=== PATIENT | female | born 1985 | race Caucasian/White ===

== ENCOUNTER 2018-11-12 18:58 | Inpatient (IN) | payer SELFPAY ==
[~2018-11-12] VITALS: Ht 167.6 cm; Wt 122.5 kg
--- NOTE | 2018-11-12 20:09 | PHYS DOC ---
Adult General Chief Complaint Chief Complaint: ANKLE PROBLEM HPI HPI Patient is a 33 year old female that presents to ER after being seen at [facility] on Monday. The patient slid down heel to the leg and hurt her leg. The patient was seen in the ER in [place] and states that she had a fracture reduced however after the physician reduced it she says that the nurse took the cast off and then put a new cast on. It was never re-x-rayed after this happened. He states that she's been feeling increased pain in the leg. She is unsure what type of fracture that she has. She states that she was giving script for 10 mg [place]'s in the ER and has been taking those at home. Her pain is 10 out of 10 in severity however though. (RODRIGUE EPSTEIN APRN) Review of Systems Review of Systems Constitutional: Denies fever or chills [] Eyes: Denies change in visual acuity, redness, or eye pain [] HENT: Denies nasal congestion or sore throat [] Respiratory: Denies cough or shortness of breath [] Cardiovascular: No additional information not addressed in HPI [] GI: Denies abdominal pain, nausea, vomiting, bloody stools or diarrhea [] : Denies dysuria or hematuria [] Musculoskeletal: Reports pain in Left leg. Integument: Denies rash or skin lesions [] Neurologic: Denies headache, focal weakness or sensory changes [] Endocrine: Denies polyuria or polydipsia [] Complete systems were reviewed and found to be within normal limits, except as documented in this note. (RODRIGUE EPSTEIN APRN) Current Medications Current Medications Current Medications Medications (Trade) Dose Ordered Sig/Marcial Start Time Stop Time Status Last Admin Dose Admin Morphine Sulfate (Morphine Sulfate) 8 mg 1X ONCE 11/12/18 20:15 11/12/18 20:31 DC 11/12/18 20:45 8 MG (RODRIGUE MCCURDY DO) Allergies Allergies Allergies Coded Allergies Type Severity Reaction Last Updated Verified No Known Drug Allergies 11/12/18 No (RODRIGUE MCCURDY DO) Physical Exam Physical Exam Constitutional: Well developed, well nourished, no acute distress, non-toxic appearance. [] HENT: Normocephalic, atraumatic, bilateral external ears normal, oropharynx moist, no oral exudates, nose normal. [] Eyes: PERRLA, EOMI, conjunctiva normal, no discharge. [] Neck: Normal range of motion, no tenderness, supple, no stridor. [] Cardiovascular:Heart rate regular rhythm, no murmur [] Lungs & Thorax: Bilateral breath sounds clear to auscultation [] Abdomen: Bowel sounds normal, soft, no tenderness, no masses, no pulsatile masses. [] Skin: Warm, dry, no erythema, no rash. [] Back: No tenderness, no CVA tenderness. [] Extremities: Has splint on left leg. Neurovascular intact, able to wiggle toes. Neurologic: Alert and oriented X 3, normal motor function, normal sensory function, no focal deficits noted. [] Psychologic: Affect normal, judgement normal, mood normal. [] (RODRIGUE EPSTEIN APRN) Current Patient Data Vital Signs Vital Signs Date Time Temp Pulse Resp B/P (MAP) Pulse Ox O2 Delivery O2 Flow Rate FiO2 11/12/18 21:21 86 133/77 (95) 98 Room Air 11/12/18 20:45 18 11/12/18 19:40 97.9 97.9 (RODRGIUE MCCURDY DO) Lab Values Laboratory Tests Test 11/12/18 21:55 White Blood Count 11.4 x10^3/uL (4.0-11.0) H Red Blood Count 4.46 x10^6/uL (3.50-5.40) Hemoglobin 12.1 g/dL (12.0-15.5) Hematocrit 36.0 % (36.0-47.0) Mean Corpuscular Volume 81 fL (79-100) Mean Corpuscular Hemoglobin 27 pg (25-35) Mean Corpuscular Hemoglobin Concent 34 g/dL (31-37) Red Cell Distribution Width 14.8 % (11.5-14.5) H Platelet Count 391 x10^3/uL (140-400) Neutrophils (%) (Auto) 60 % (31-73) Lymphocytes (%) (Auto) 33 % (24-48) Monocytes (%) (Auto) 6 % (0-9) Eosinophils (%) (Auto) 1 % (0-3) Basophils (%) (Auto) 1 % (0-3) Neutrophils # (Auto) 6.8 x10^3/uL (1.8-7.7) Lymphocytes # (Auto) 3.8 x10^3/uL (1.0-4.8) Monocytes # (Auto) 0.6 x10^3/uL (0.0-1.1) Eosinophils # (Auto) 0.1 x10^3/uL (0.0-0.7) Basophils # (Auto) 0.1 x10^3/uL (0.0-0.2) Sodium Level 141 mmol/L (136-145) Potassium Level 4.0 mmol/L (3.5-5.1) Chloride Level 104 mmol/L (98-107) Carbon Dioxide Level 25 mmol/L (21-32) Anion Gap 12 (6-14) Blood Urea Nitrogen 17 mg/dL (7-20) Creatinine 1.0 mg/dL (0.6-1.0) Estimated GFR (Cockcroft-Gault) 63.5 BUN/Creatinine Ratio 17 (6-20) Glucose Level 97 mg/dL (70-99) Calcium Level 9.3 mg/dL (8.5-10.1) Total Bilirubin 0.4 mg/dL (0.2-1.0) Aspartate Amino Transferase (AST) 52 U/L (15-37) H Alanine Aminotransferase (ALT) 57 U/L (14-59) Alkaline Phosphatase 107 U/L (46-116) Total Protein 7.8 g/dL (6.4-8.2) Albumin 3.5 g/dL (3.4-5.0) Albumin/Globulin Ratio 0.8 (1.0-1.7) L Laboratory Tests 11/12/18 21:55 Laboratory Tests 11/12/18 21:55 (RODRIGUE MCCURDY DO) Lab Values Laboratory Tests Test 11/12/18 21:55 White Blood Count 11.4 x10^3/uL (4.0-11.0) H Red Blood Count 4.46 x10^6/uL (3.50-5.40) Hemoglobin 12.1 g/dL (12.0-15.5) Hematocrit 36.0 % (36.0-47.0) Mean Corpuscular Volume 81 fL (79-100) Mean Corpuscular Hemoglobin 27 pg (25-35) Mean Corpuscular Hemoglobin Concent 34 g/dL (31-37) Red Cell Distribution Width 14.8 % (11.5-14.5) H Platelet Count 391 x10^3/uL (140-400) Neutrophils (%) (Auto) 60 % (31-73) Lymphocytes (%) (Auto) 33 % (24-48) Monocytes (%) (Auto) 6 % (0-9) Eosinophils (%) (Auto) 1 % (0-3) Basophils (%) (Auto) 1 % (0-3) Neutrophils # (Auto) 6.8 x10^3/uL (1.8-7.7) Lymphocytes # (Auto) 3.8 x10^3/uL (1.0-4.8) Monocytes # (Auto) 0.6 x10^3/uL (0.0-1.1) Eosinophils # (Auto) 0.1 x10^3/uL (0.0-0.7) Basophils # (Auto) 0.1 x10^3/uL (0.0-0.2) Sodium Level 141 mmol/L (136-145) Potassium Level 4.0 mmol/L (3.5-5.1) Chloride Level 104 mmol/L (98-107) Carbon Dioxide Level 25 mmol/L (21-32) Anion Gap 12 (6-14) Blood Urea Nitrogen 17 mg/dL (7-20) Creatinine 1.0 mg/dL (0.6-1.0) Estimated GFR (Cockcroft-Gault) 63.5 BUN/Creatinine Ratio 17 (6-20) Glucose Level 97 mg/dL (70-99) Calcium Level 9.3 mg/dL (8.5-10.1) Total Bilirubin 0.4 mg/dL (0.2-1.0) Aspartate Amino Transferase (AST) 52 U/L (15-37) H Alanine Aminotransferase (ALT) 57 U/L (14-59) Alkaline Phosphatase 107 U/L (46-116) Total Protein 7.8 g/dL (6.4-8.2) Albumin 3.5 g/dL (3.4-5.0) Albumin/Globulin Ratio 0.8 (1.0-1.7) L Laboratory Tests 11/12/18 21:55 Laboratory Tests 11/12/18 21:55 (RODRIGUE EPSTEIN APRN) EKG EKG EKG interpreted by Dr. Mccurdy Sinus with rate of 95, No STEMI.[] (RODRIGUE EPSTEIN APRN) Radiology/Procedures Radiology/Procedures [] (RODRIGUE EPSTEIN APRN) Radiology/Procedures Left ankle 3V and Left Tib/Fib 2V: (preliminary interpretation by ED physician): Trimalleolar fracture with mild-moderate displacement of ankle mortis. (RODRIGUE MCCURDY DO) Course & Med Decision Making Course & Med Decision Making Pertinent Labs and Imaging studies reviewed. (See chart for details) Will get x-ray of leg to see if still dislocated. Looked patient up on [facility] and am unable to find record of patient ([facility] Patient appears to have a Trimalleolar fracture. The talus seems out of place. Discussed with Dr. Chan who request admission and he will see in the morning. Will admit to Dr. Myers. Will resplint and try to reduce the Talus. Resplinted patient. Gave pain medication beforehand and placed a posterior long with stirrup and pulled on the heel while doing so to try to relocate the talus. (RDORIGUE EPSTEIN APRN) Dragon Disclaimer Dragon Disclaimer This electronic medical record was generated, in whole or in part, using a voice recognition dictation system. (RODRIGUE EPSTEIN APRN) Splinting Splinting : Location: Left ankle Hand-Made Type: orthoglass Splint: sugar-tong (with posterior OCL) Pre-Proc Neuro Vasc Exam: normal Post-Proc Neuro Vasc Exam: normal, unchanged from pre-exam (RODRIGUE MCCURDY DO) Departure Departure Impression: Primary Impression: Trimalleolar fracture Disposition: 09 ADMITTED INPATIENT Admitting Physician: CHENTE (RODRIGUE EPSTEIN APRN) Condition: STABLE Referrals: NO PCP (PCP) GABBY CHAN MD Attending Signature Attending Signature I have reviewed the PA/STATION COOK's note and plan of care. I was available for consultation as needed during the patient's visit in the emergency department. I agree with the clinical impression, plan, and disposition. (RODRIGUE MCCURDY DO) Problem Qualifiers Primary Impression: Trimalleolar fracture Encounter type: initial encounter Fracture type: closed Laterality: left Qualified Codes: S82.852A - Displaced trimalleolar fracture of left lower leg, initial encounter for closed fracture RODRIGUE EPSTEIN APRN Nov 12, 2018 20:09 RODRIGUE MCCURDY DO Nov 13, 2018 04:32
[2018-11-12] MEDS ORDERED: MORPHINE SULFATE 10 MG/ML VIAL. IM ONE (20:15)
[2018-11-12] MEDS ORDERED: MIDAZOLAM HCL/PF 5 MG/5 ML VIAL. IV ONE (22:00)
[2018-11-12] MEDS ORDERED: ONDANSETRON PF 4 MG/2 ML VIAL. IV PRN (22:00)
[2018-11-12] MEDS ORDERED: fentaNYL PF VIAL 100 MCG/2 ML VIAL IV ONE (22:00)
[2018-11-12 22:04] LABS: BASO # 0.1 x10^3/uL (0.0-0.2); BASO % 1 % (0-3); EOS # 0.1 x10^3/uL (0.0-0.7); EOS % 1 % (0-3); HEMOGLOBIN 12.1 g/dL (12.0-15.5); LYMPH # 3.8 x10^3/uL (1.0-4.8); LYMPH % 33 % (24-48); MEAN CORPUSCULAR HEMOGLOBIN 27 pg (25-35); MEAN CORPUSCULAR HGB CONC 34 g/dL (31-37); MEAN CORPUSCULAR VOLUME 81 fL (79-100); MONO # 0.6 x10^3/uL (0.0-1.1); MONO % 6 % (0-9); NEUT # 6.8 x10^3/uL (1.8-7.7); NEUT % 60 % (31-73); PLATELET COUNT 391 x10^3/uL (140-400); RED BLOOD COUNT 4.46 x10^6/uL (3.50-5.40); RED CELL DISTRIBUTION WIDTH 14.8 % (11.5-14.5); WHITE BLOOD COUNT 11.4 x10^3/uL (4.0-11.0)
[2018-11-12 22:13] LABS: CALCIUM 9.3 mg/dL (8.5-10.1); GFR 63.5
[2018-11-12 22:18] LABS: ALBUMIN 3.5 g/dL (3.4-5.0); ALBUMIN/GLOBULIN RATIO 0.8 (1.0-1.7); TOTAL BILIRUBIN 0.4 mg/dL (0.2-1.0); TOTAL PROTEIN 7.8 g/dL (6.4-8.2)
--- NOTE | 2018-11-12 23:10 | NUR ---
The patient, TIFF ROBBINS, 33 y/o, F admitted by ERNESTO TAM III, DO, was given written information regarding hospital policies, unit procedures and contact persons. RN received report from Madhuri WATTERS in ED @ 2250. Patient was transported from ED to room 408 @ 2310 via bed with at bedside. RN performed a head to toe assessment at that time, VSS, afebrile, and pain rated a 9/10. Bed is in lowest locked position and call light is within reach. Valuables were checked and left in the room with the patient. RN will continue to monitor patient closely.
--- NOTE | 2018-11-12 23:20 | EKG ---
[facility] [address] [place] [address] Test Date: 2018-11-12 Test Time: 22:31:25 Pat Name: TIFF ROBBINS Department: Room: Gender: F Quality Assurance Supervisor: : 1985 Requested By: RODRIGUE EPSTEIN Order Number: [id number] Reading MD: Measurements Intervals [place] Rate: 95 P: 31 MO: 150 QRS: 36 QRSD: 74 T: 5 QT: 344 QTc: 435 Interpretive Statements SINUS RHYTHM QRS(T) CONTOUR ABNORMALITY CONSISTENT WITH INFERIOR INFARCT AGE UNDETERMINED ABNORMAL ECG No previous ECG available for comparison
[2018-11-13] VITALS (12 sets, daily range): BP systolic 108–152; BP diastolic 52–95
[2018-11-13] MEDS: MORPHINE SULFATE 4 MG/ML VIAL. IV PRN ×5 (00:25→12:13)
--- NOTE | 2018-11-13 03:15 | NUR ---
Patient was complaining of epigastric pain and stated that she has had previous issues with her gallbladder and needed it removed but never did. Patient was refusing meds at that time. Dr. Myers was notified and a consult was put in for Dr. Becerra.
--- NOTE | 2018-11-13 08:10 | RAD ---
3 views left ankle 11/12/2018 INDICATION: Ankle pain COMPARISON STUDY: None Discussion: Overlying splinting material noted. This limits bony detail. There appears to be a trimalleolar ankle fracture with significant lateral displacement of the medial malleolus fracture fragment. Mild comminution of this fracture fragment noted. There is an oblique fracture of the distal fibula. There is a mildly displaced posterior malleolar fracture. The ankle mortise is significantly widened with lateral displacement of the talus with respect to the tibia. Mild posterior displacement of the talus also appears to be present. Joint effusion and soft tissue swelling noted. IMPRESSION: Trimalleolar fracture as described. Consider CT imaging as clinically indicated. Electronically signed by: Henok Hyman MD (11/13/2018 8:06 AM) [id number]
[2018-11-13] MEDS ORDERED: ZOLPIDEM 5 MG TABLET. PO PRN (08:15)
[2018-11-13] MEDS ORDERED: ONDANSETRON PF 4 MG/2 ML VIAL. IV PRN ×3 (08:15→17:00)
--- NOTE | 2018-11-13 08:25 | RAD ---
TIBIA FIBULA LEFT History: Leg pain. Technique: 2 views left tib-fib Comparison: Left ankle November 12, 2018. Findings: Overlying splint. Disrupted ankle mortise. Displaced medial malleolus fracture with lateral displacement of the distal fracture fragment. Comminuted displaced left distal fibular fracture. Posterior and lateral displacement of the distal fracture fragments. No proximal fibular fracture. Mildly displaced posterior malleolus fracture. Impression: 1. Acute trimalleolar ankle fracture with disruption of the ankle mortise. Electronically signed by: King Wolf DO (11/13/2018 8:22 AM) [email or web address]
--- NOTE | 2018-11-13 09:07 | PDOC2 ---
GI CONSULT Reason For Consult: Epigastric pain HPI: HPI: 33 y/o female w/ left trimalleolar fracture - occurred 11/10, was seen at [facility] and casted, to [facility] ER yesterday w/ increased pain, ortho consult pending. GI-richardson, has had constant throbbing LUQ pain w/ radiation "straight through" to back. Began 11/10 after returning home from the hospital. Similar to "gallbladder attack" 9 years ago during . Denies h/o gallstones - "they said I should have it out and I never went back." Pain is worse when laying flat and not changed w/ eating/drinking. She did fall when she hurt her ankle but does not think she injured her abdomen, ribs, back, etc. H/o GERD - mostly bothersome at night, keeps Tums by her bed. No dysphagia. No n/v. "Having a hard time pooping" with hydrocodone for foot pain - small stool yesterday. Typically no diarrhea or constipation. No hematochezia or melena. Has lost 30 pounds in the past 4 months - "I might have cut back but wasn't really trying." Possible decreased appetite. No previous EGD or colonoscopy. No pancreas, liver, or PUD history. Takes ibuprofen PRN for headaches. PMH: PMH: bullous pemphigoid removal of benign neck mass FH: Family History: Cancer (mother - breast) Social History: Smoke: <1 pack per day ALCOHOL: none Drugs: None ROS: GEN: Denies fevers, chills, sweats HEENT: Denies blurred vision, sore throat CV: Denies chest pain RESP: Denies shortness of air, cough GI: Per HPI : Denies hematuria, dysuria ENDO: +weight loss NEURO: Denies confusion, dizziness MSK: left ankle/leg pain SKIN: Denies jaundice, pruritus Vitals: Vitals: Vital Signs Date Time Temp Pulse Resp B/P (MAP) Pulse Ox O2 Delivery O2 Flow Rate FiO2 11/13/18 08:59 Room Air 11/13/18 07:15 98.8 88 18 108/61 (77) 97 98.8 Labs: Labs: Laboratory Tests Test 11/12/18 21:55 White Blood Count 11.4 x10^3/uL (4.0-11.0) Red Blood Count 4.46 x10^6/uL (3.50-5.40) Hemoglobin 12.1 g/dL (12.0-15.5) Hematocrit 36.0 % (36.0-47.0) Mean Corpuscular Volume 81 fL (79-100) Mean Corpuscular Hemoglobin 27 pg (25-35) Mean Corpuscular Hemoglobin Concent 34 g/dL (31-37) Red Cell Distribution Width 14.8 % (11.5-14.5) Platelet Count 391 x10^3/uL (140-400) Neutrophils (%) (Auto) 60 % (31-73) Lymphocytes (%) (Auto) 33 % (24-48) Monocytes (%) (Auto) 6 % (0-9) Eosinophils (%) (Auto) 1 % (0-3) Basophils (%) (Auto) 1 % (0-3) Neutrophils # (Auto) 6.8 x10^3/uL (1.8-7.7) Lymphocytes # (Auto) 3.8 x10^3/uL (1.0-4.8) Monocytes # (Auto) 0.6 x10^3/uL (0.0-1.1) Eosinophils # (Auto) 0.1 x10^3/uL (0.0-0.7) Basophils # (Auto) 0.1 x10^3/uL (0.0-0.2) Sodium Level 141 mmol/L (136-145) Potassium Level 4.0 mmol/L (3.5-5.1) Chloride Level 104 mmol/L (98-107) Carbon Dioxide Level 25 mmol/L (21-32) Anion Gap 12 (6-14) Blood Urea Nitrogen 17 mg/dL (7-20) Creatinine 1.0 mg/dL (0.6-1.0) Estimated GFR (Cockcroft-Gault) 63.5 BUN/Creatinine Ratio 17 (6-20) Glucose Level 97 mg/dL (70-99) Calcium Level 9.3 mg/dL (8.5-10.1) Total Bilirubin 0.4 mg/dL (0.2-1.0) Aspartate Amino Transf (AST/SGOT) 52 U/L (15-37) Alanine Aminotransferase (ALT/SGPT) 57 U/L (14-59) Alkaline Phosphatase 107 U/L (46-116) Total Protein 7.8 g/dL (6.4-8.2) Albumin 3.5 g/dL (3.4-5.0) Albumin/Globulin Ratio 0.8 (1.0-1.7) Allergies: Coded Allergies: No Known Drug Allergies (Unverified , 11/12/18) Medications: Current Medications Medications (Trade) Dose Ordered Sig/Marcial Route PRN Reason Start Time Stop Time Status Last Admin Dose Admin Morphine Sulfate (Morphine Sulfate) 8 mg 1X ONCE IM 11/12/18 20:15 11/12/18 20:31 DC 11/12/18 20:45 Fentanyl Citrate (Fentanyl 2ml Vial) 50 mcg 1X ONCE IV 11/12/18 22:00 11/12/18 22:01 DC 11/12/18 22:04 Midazolam HCl (Versed) 5 mg 1X ONCE IV 11/12/18 22:00 11/12/18 22:01 DC 11/12/18 22:04 Ondansetron HCl (Zofran) 4 mg PRN Q8HRS PRN IV NAUSEA/VOMITING 1st choice 11/12/18 22:00 11/13/18 08:04 DC 11/12/18 22:28 Morphine Sulfate (Morphine Sulfate) 4 mg PRN Q2HR PRN IV SEVERE PAIN 7-10 11/12/18 22:00 11/13/18 21:59 11/13/18 08:12 Ondansetron HCl (Zofran) 4 mg PRN Q6HRS PRN IV NAUSEA/VOMITING 1st choice 11/13/18 08:15 11/13/18 08:12 Imaging: Imaging: Ankle X-Ray IMPRESSION: Trimalleolar fracture as described. Consider CT imaging as clinically indicated. Tibia/Fibula X-Ray Impression: 1. Acute trimalleolar ankle fracture with disruption of the ankle mortise. PE: GEN: NAD HEENT: Atraumatic, PERRL LUNGS: CTAB HEART: RRR ABD: NABS, S/ND, LUQ discomfort EXTREMITY: LLE w/ cast SKIN: No rashes, no jaundice NEURO/PSYCH: A & O �3 A/P: A/P: Left trimalleolar fracture LUQ pain Acid reflux, ?decreased appetite, weight loss Constipation - recent, on hydrocodone CRC screen - average risk ?GB disease -- Plans for US - await this, consider CT. Check lipase. Add PPI, Miralax, etc. CECIL WINSTON Nov 13, 2018 09:06
--- NOTE | 2018-11-13 09:21 | PDOC1 ---
History and Physical Date of Admission Date of Admission DATE: 11/13/18 TIME: 09:15 Identification/Chief Complaint Chief Complaint fall last monday, hurt her left ankle Source Source: Caregiver, Chart review, Patient History of Present Illness History of Present Illness 33 white female, obese with BMI 44, was in a sneed last monday and she fell forward and hurt her left ankle, went to [facility], was dx with dislocation left ankle and was manually reduced art ER and sent home, Pain got worse, she cant bear weight on that left leg since the accident so came here with ortho on board and has been nPO< She is agreeable to sx if recommended, She does not have any real signif past medical hx But overmight, developed some epig pain, known dx acalculous cholecystitis when she was was advised elective Lap ozzie but got busy with her kid so never did, Past Medical History Cardiovascular: No pertinent hx Pulmonary: No pertinent hx GI: No pertinent hx Heme/Onc: No pertinent hx Hepatobiliary: No pertinent hx Psych: No pertinent hx Rheumatologic: No pertinent hx Infectious disease: No pertinent hx ENT: No pertinent hx Renal/: No pertinent hx Endocrine: No pertinent hx Dermatology: No pertinent hx Past Surgical History Past Surgical History: Other (minor leck lump excision as OP) Family History Family History: Hypertension Social History Smoke: <1 pack per day ALCOHOL: none Drugs: None Current Problem List Problem List Problems Medical Problems: (1) Trimalleolar fracture Status: Acute Current Medications Current Medications Current Medications Morphine Sulfate (Morphine Sulfate) 8 mg 1X ONCE IM Last administered on 11/12/18at 20:45; Start 11/12/18 at 20:15; Stop 11/12/18 at 20:31; Status DC Fentanyl Citrate (Fentanyl 2ml Vial) 50 mcg 1X ONCE IV Last administered on 11/12/18at 22:04; Start 11/12/18 at 22:00; Stop 11/12/18 at 22:01; Status DC Midazolam HCl (Versed) 5 mg 1X ONCE IV Last administered on 11/12/18at 22:04; Start 11/12/18 at 22:00; Stop 11/12/18 at 22:01; Status DC Ondansetron HCl (Zofran) 4 mg PRN Q8HRS PRN IV NAUSEA/VOMITING 1st choice Last administered on 11/12/18at 22:28; Start 11/12/18 at 22:00; Stop 11/13/18 at 08:04; Status DC Morphine Sulfate (Morphine Sulfate) 4 mg PRN Q2HR PRN IV SEVERE PAIN 7-10 Last administered on 11/13/18at 08:12; Start 11/12/18 at 22:00; Stop 11/13/18 at 21:59 Ondansetron HCl (Zofran) 4 mg PRN Q6HRS PRN IV NAUSEA/VOMITING 1st choice Last administered on 11/13/18at 08:12; Start 11/13/18 at 08:15 Oxycodone/ Acetaminophen (Percocet 5/325) 1 tab PRN Q4HRS PRN PO PAIN; Start 11/13/18 at 08:15 Zolpidem Tartrate (Ambien) 5 mg PRN QHS PRN PO INSOMNIA; Start 11/13/18 at 08:15 Pantoprazole Sodium (Protonix) 40 mg DAILYAC PO ; Start 11/13/18 at 09:30 Allergies Allergies: Coded Allergies: No Known Drug Allergies (Unverified , 11/12/18) ROS Review of System as per hPi, rest 14 pt neg Physical Exam General: Alert, Oriented X3, Cooperative, No acute distress HEENT: PERRLA, EOMI Lungs: Clear to auscultation, Normal air movement Heart: S1S2, RRR, no thrills, no rubs, no gallops, no murmurs Cardiovascular: S1, S2 Breasts: Normal, Rt breast nml w/o mass, Lt breast nml w/o mass, Nipples normal Abdomen: Normal bowel sounds, Soft, No hepatosplenomegaly, No masses, Other (no guarding, NABS< tenderness epif deep palp) Extremities: No clubbing, No cyanosis, Normal pulses, Other (left leg soft cast) Neuro: Normal gait, Normal speech, Strength at 5/5 X4 ext, Normal tone, Sensation intact, Cranial nerves 3-12 NL, Reflexes 2+ Psych/Mental Status: Mental status NL, Mood NL Vitals Vitals Vital Signs Date Time Temp Pulse Resp B/P (MAP) Pulse Ox O2 Delivery O2 Flow Rate FiO2 11/13/18 08:59 Room Air 11/13/18 07:15 98.8 88 18 108/61 (77) 97 98.8 Labs Labs Laboratory Tests Test 11/12/18 21:55 White Blood Count 11.4 x10^3/uL (4.0-11.0) Red Blood Count 4.46 x10^6/uL (3.50-5.40) Hemoglobin 12.1 g/dL (12.0-15.5) Hematocrit 36.0 % (36.0-47.0) Mean Corpuscular Volume 81 fL (79-100) Mean Corpuscular Hemoglobin 27 pg (25-35) Mean Corpuscular Hemoglobin Concent 34 g/dL (31-37) Red Cell Distribution Width 14.8 % (11.5-14.5) Platelet Count 391 x10^3/uL (140-400) Neutrophils (%) (Auto) 60 % (31-73) Lymphocytes (%) (Auto) 33 % (24-48) Monocytes (%) (Auto) 6 % (0-9) Eosinophils (%) (Auto) 1 % (0-3) Basophils (%) (Auto) 1 % (0-3) Neutrophils # (Auto) 6.8 x10^3/uL (1.8-7.7) Lymphocytes # (Auto) 3.8 x10^3/uL (1.0-4.8) Monocytes # (Auto) 0.6 x10^3/uL (0.0-1.1) Eosinophils # (Auto) 0.1 x10^3/uL (0.0-0.7) Basophils # (Auto) 0.1 x10^3/uL (0.0-0.2) Sodium Level 141 mmol/L (136-145) Potassium Level 4.0 mmol/L (3.5-5.1) Chloride Level 104 mmol/L (98-107) Carbon Dioxide Level 25 mmol/L (21-32) Anion Gap 12 (6-14) Blood Urea Nitrogen 17 mg/dL (7-20) Creatinine 1.0 mg/dL (0.6-1.0) Estimated GFR (Cockcroft-Gault) 63.5 BUN/Creatinine Ratio 17 (6-20) Glucose Level 97 mg/dL (70-99) Calcium Level 9.3 mg/dL (8.5-10.1) Total Bilirubin 0.4 mg/dL (0.2-1.0) Aspartate Amino Transf (AST/SGOT) 52 U/L (15-37) Alanine Aminotransferase (ALT/SGPT) 57 U/L (14-59) Alkaline Phosphatase 107 U/L (46-116) Total Protein 7.8 g/dL (6.4-8.2) Albumin 3.5 g/dL (3.4-5.0) Albumin/Globulin Ratio 0.8 (1.0-1.7) Laboratory Tests Test 11/12/18 21:55 White Blood Count 11.4 x10^3/uL (4.0-11.0) Red Blood Count 4.46 x10^6/uL (3.50-5.40) Hemoglobin 12.1 g/dL (12.0-15.5) Hematocrit 36.0 % (36.0-47.0) Mean Corpuscular Volume 81 fL (79-100) Mean Corpuscular Hemoglobin 27 pg (25-35) Mean Corpuscular Hemoglobin Concent 34 g/dL (31-37) Red Cell Distribution Width 14.8 % (11.5-14.5) Platelet Count 391 x10^3/uL (140-400) Neutrophils (%) (Auto) 60 % (31-73) Lymphocytes (%) (Auto) 33 % (24-48) Monocytes (%) (Auto) 6 % (0-9) Eosinophils (%) (Auto) 1 % (0-3) Basophils (%) (Auto) 1 % (0-3) Neutrophils # (Auto) 6.8 x10^3/uL (1.8-7.7) Lymphocytes # (Auto) 3.8 x10^3/uL (1.0-4.8) Monocytes # (Auto) 0.6 x10^3/uL (0.0-1.1) Eosinophils # (Auto) 0.1 x10^3/uL (0.0-0.7) Basophils # (Auto) 0.1 x10^3/uL (0.0-0.2) Sodium Level 141 mmol/L (136-145) Potassium Level 4.0 mmol/L (3.5-5.1) Chloride Level 104 mmol/L (98-107) Carbon Dioxide Level 25 mmol/L (21-32) Anion Gap 12 (6-14) Blood Urea Nitrogen 17 mg/dL (7-20) Creatinine 1.0 mg/dL (0.6-1.0) Estimated GFR (Cockcroft-Gault) 63.5 BUN/Creatinine Ratio 17 (6-20) Glucose Level 97 mg/dL (70-99) Calcium Level 9.3 mg/dL (8.5-10.1) Total Bilirubin 0.4 mg/dL (0.2-1.0) Aspartate Amino Transf (AST/SGOT) 52 U/L (15-37) Alanine Aminotransferase (ALT/SGPT) 57 U/L (14-59) Alkaline Phosphatase 107 U/L (46-116) Total Protein 7.8 g/dL (6.4-8.2) Albumin 3.5 g/dL (3.4-5.0) Albumin/Globulin Ratio 0.8 (1.0-1.7) VTE Prophylaxis Ordered VTE Prophylaxis Devices: Yes VTE Pharmacological Prophylaxi: Yes Assessment/Plan Assessment/Plan 1, left trimalleolar fx, mechanical fall, closed, s./p failed reduction at [facility] 11/10 2. Obesity BMI 44 3. EPig pain with known dx acalculous ozzie - while mos ago PLAN: MEd surg floor 2 MN FULL CODE Check US abd limited Ortho consulted Check vit D Pain control Colleague has consulted gI NO home meds to reconcile IVF while NPO HANK GORMAN MD Nov 13, 2018 09:21
[2018-11-13] MEDS ORDERED: NICOTINE 21MG PATCH. TD PRN (09:30)
[2018-11-13] MEDS ORDERED: BISACODYL 5 MG TABLET.DR. PO PRN (09:30)
[2018-11-13] MEDS: PANTOPRAZOLE 40 MG TABLET.DR. PO SCH (09:30)
[2018-11-13] MEDS ORDERED: IV NORMAL SALINE 1000ML BAG 1,000 ML IV ONE (09:30)
[2018-11-13] MEDS: POLYETHYLENE GLYCOL 3350 17 GM PACKET. PO SCH (10:00)
--- NOTE | 2018-11-13 12:35 | PDOC2 ---
CONSULT Date of Consult Date of Consult DATE: 11/13/18 TIME: 12:35 Reason for Consult Reason for Consult: Left ankle fracture Identification/Chief Complaint Chief Complaint Left ankle pain Source Source: Chart review, Patient History of Present Illness Reason for Visit: This 33-year-old woman was fishing with her on Friday 11/10, and tried to walk downhill and then slipped and injured her ankle. Patient is a 33 year old female that presents to ER after being seen at [facility] on Monday. The patient slid down heel to the leg and hurt her leg. The patient was seen in the ER in [place] and states that she had a fracture reduced however after the physician reduced it she says that the nurse took the cast off and then put a new cast on. It was never re-x-rayed after this happened. He states that she's been feeling increased pain in the leg. She is unsure what type of fracture that she has. She states that she was giving script for 10 mg Minong's in the ER and has been taking those at home. Her pain is 10 out of 10 in severity however though. None of the fracture came through the skin. She denies any metal or nickel allergy or sensitivity. Last menstrual period was 10/29/18. She works part-time at a hotel, and also has 2 children ages 11 and 9. She has smoked a half pack per day since approximately high school. Past Medical History Cardiovascular: No pertinent hx Pulmonary: No pertinent hx GI: No pertinent hx Heme/Onc: No pertinent hx Hepatobiliary: No pertinent hx Psych: No pertinent hx Rheumatologic: No pertinent hx Infectious disease: No pertinent hx ENT: No pertinent hx Renal/: No pertinent hx Endocrine: No pertinent hx Dermatology: No pertinent hx Past Surgical History Past Surgical History: Other (minor leck lump excision as OP) Family History Family History: Hypertension Social History <1 pack per day ALCOHOL: none Drugs: None Current Problem List Problem List Problems Medical Problems: (1) Trimalleolar fracture Status: Acute Current Medications Current Medications Current Medications Morphine Sulfate (Morphine Sulfate) 8 mg 1X ONCE IM Last administered on 11/12/18at 20:45; Start 11/12/18 at 20:15; Stop 11/12/18 at 20:31; Status DC Fentanyl Citrate (Fentanyl 2ml Vial) 50 mcg 1X ONCE IV Last administered on 11/12/18at 22:04; Start 11/12/18 at 22:00; Stop 11/12/18 at 22:01; Status DC Midazolam HCl (Versed) 5 mg 1X ONCE IV Last administered on 11/12/18at 22:04; Start 11/12/18 at 22:00; Stop 11/12/18 at 22:01; Status DC Ondansetron HCl (Zofran) 4 mg PRN Q8HRS PRN IV NAUSEA/VOMITING 1st choice Last administered on 11/12/18at 22:28; Start 11/12/18 at 22:00; Stop 11/13/18 at 08:04; Status DC Morphine Sulfate (Morphine Sulfate) 4 mg PRN Q2HR PRN IV SEVERE PAIN 7-10 Last administered on 11/13/18at 12:13; Start 11/12/18 at 22:00; Stop 11/13/18 at 21:59 Ondansetron HCl (Zofran) 4 mg PRN Q6HRS PRN IV NAUSEA/VOMITING 1st choice Last administered on 11/13/18at 08:12; Start 11/13/18 at 08:15 Oxycodone/ Acetaminophen (Percocet 5/325) 1 tab PRN Q4HRS PRN PO PAIN; Start 11/13/18 at 08:15 Zolpidem Tartrate (Ambien) 5 mg PRN QHS PRN PO INSOMNIA; Start 11/13/18 at 08:15 Pantoprazole Sodium (Protonix) 40 mg DAILYAC PO ; Start 11/13/18 at 09:30 Polyethylene Glycol (miraLAX PACKET) 17 gm DAILY PO ; Start 11/13/18 at 10:00 Bisacodyl (Dulcolax Tab) 5 mg PRN DAILY PRN PO CONSTIPATION; Start 11/13/18 at 09:30 Nicotine (Nicoderm Cq 21mg) 1 patch PRN DAILY PRN TD SMOKING CESSATION; Start 11/13/18 at 09:30 Sodium Chloride 1,000 ml @ 100 mls/hr 1X ONCE IV Last administered on 11/13/18at 10:15; Start 11/13/18 at 09:30; Stop 11/13/18 at 19:29 Allergies Allergies: Coded Allergies: No Known Drug Allergies (Unverified , 11/12/18) ROS General: No: Chills, Night Sweats Eyes: No Double vision Hematological and Lymphatic: No: Blood Clots Respiratory: No: Cough, Pleuritic Pain, Shortness of breath Cardiovascular: No Chest Pain, No Palpitations Gastrointestinal: No Nausea, No Vomiting, No Diarrhea, No Constipation Genitourinary: No Dysuria, No Hematuria Musculoskeletal: Yes Joint Pain Physical Exam General: Alert, Cooperative HEENT: Atraumatic Lungs: Normal air movement Heart: Regular rate Abdomen: Soft Extremities: Other (the left ankle is in a splint. The toes are neurovascularly intact. This is a bulky splint but there does seem to be mild deformity on examination. There is no evidence of compartment syndrome or specific neurovascular injury. The skin over the fracture was not examined at this time but is reported as intact.) Skin: No significant lesion Neuro: Normal tone, Sensation intact Psych/Mental Status: Mental status NL, Mood NL Vitals VITALS Vital Signs Date Time Temp Pulse Resp B/P (MAP) Pulse Ox O2 Delivery O2 Flow Rate FiO2 11/13/18 12:13 Room Air 11/13/18 11:04 98.0 79 18 114/62 (79) 97 98.0 Labs Labs Laboratory Tests Test 11/12/18 21:55 11/13/18 09:15 White Blood Count 11.4 x10^3/uL (4.0-11.0) Red Blood Count 4.46 x10^6/uL (3.50-5.40) Hemoglobin 12.1 g/dL (12.0-15.5) Hematocrit 36.0 % (36.0-47.0) Mean Corpuscular Volume 81 fL (79-100) Mean Corpuscular Hemoglobin 27 pg (25-35) Mean Corpuscular Hemoglobin Concent 34 g/dL (31-37) Red Cell Distribution Width 14.8 % (11.5-14.5) Platelet Count 391 x10^3/uL (140-400) Neutrophils (%) (Auto) 60 % (31-73) Lymphocytes (%) (Auto) 33 % (24-48) Monocytes (%) (Auto) 6 % (0-9) Eosinophils (%) (Auto) 1 % (0-3) Basophils (%) (Auto) 1 % (0-3) Neutrophils # (Auto) 6.8 x10^3/uL (1.8-7.7) Lymphocytes # (Auto) 3.8 x10^3/uL (1.0-4.8) Monocytes # (Auto) 0.6 x10^3/uL (0.0-1.1) Eosinophils # (Auto) 0.1 x10^3/uL (0.0-0.7) Basophils # (Auto) 0.1 x10^3/uL (0.0-0.2) Sodium Level 141 mmol/L (136-145) Potassium Level 4.0 mmol/L (3.5-5.1) Chloride Level 104 mmol/L (98-107) Carbon Dioxide Level 25 mmol/L (21-32) Anion Gap 12 (6-14) Blood Urea Nitrogen 17 mg/dL (7-20) Creatinine 1.0 mg/dL (0.6-1.0) Estimated GFR (Cockcroft-Gault) 63.5 BUN/Creatinine Ratio 17 (6-20) Glucose Level 97 mg/dL (70-99) Calcium Level 9.3 mg/dL (8.5-10.1) Total Bilirubin 0.4 mg/dL (0.2-1.0) Aspartate Amino Transf (AST/SGOT) 52 U/L (15-37) Alanine Aminotransferase (ALT/SGPT) 57 U/L (14-59) Alkaline Phosphatase 107 U/L (46-116) Total Protein 7.8 g/dL (6.4-8.2) Albumin 3.5 g/dL (3.4-5.0) Albumin/Globulin Ratio 0.8 (1.0-1.7) Lipase 63 U/L (73-393) 25-Hydroxy Vitamin D Total 27.6 ng/mL (30-100) Laboratory Tests Test 11/12/18 21:55 11/13/18 09:15 White Blood Count 11.4 x10^3/uL (4.0-11.0) Red Blood Count 4.46 x10^6/uL (3.50-5.40) Hemoglobin 12.1 g/dL (12.0-15.5) Hematocrit 36.0 % (36.0-47.0) Mean Corpuscular Volume 81 fL (79-100) Mean Corpuscular Hemoglobin 27 pg (25-35) Mean Corpuscular Hemoglobin Concent 34 g/dL (31-37) Red Cell Distribution Width 14.8 % (11.5-14.5) Platelet Count 391 x10^3/uL (140-400) Neutrophils (%) (Auto) 60 % (31-73) Lymphocytes (%) (Auto) 33 % (24-48) Monocytes (%) (Auto) 6 % (0-9) Eosinophils (%) (Auto) 1 % (0-3) Basophils (%) (Auto) 1 % (0-3) Neutrophils # (Auto) 6.8 x10^3/uL (1.8-7.7) Lymphocytes # (Auto) 3.8 x10^3/uL (1.0-4.8) Monocytes # (Auto) 0.6 x10^3/uL (0.0-1.1) Eosinophils # (Auto) 0.1 x10^3/uL (0.0-0.7) Basophils # (Auto) 0.1 x10^3/uL (0.0-0.2) Sodium Level 141 mmol/L (136-145) Potassium Level 4.0 mmol/L (3.5-5.1) Chloride Level 104 mmol/L (98-107) Carbon Dioxide Level 25 mmol/L (21-32) Anion Gap 12 (6-14) Blood Urea Nitrogen 17 mg/dL (7-20) Creatinine 1.0 mg/dL (0.6-1.0) Estimated GFR (Cockcroft-Gault) 63.5 BUN/Creatinine Ratio 17 (6-20) Glucose Level 97 mg/dL (70-99) Calcium Level 9.3 mg/dL (8.5-10.1) Total Bilirubin 0.4 mg/dL (0.2-1.0) Aspartate Amino Transf (AST/SGOT) 52 U/L (15-37) Alanine Aminotransferase (ALT/SGPT) 57 U/L (14-59) Alkaline Phosphatase 107 U/L (46-116) Total Protein 7.8 g/dL (6.4-8.2) Albumin 3.5 g/dL (3.4-5.0) Albumin/Globulin Ratio 0.8 (1.0-1.7) Lipase 63 U/L (73-393) 25-Hydroxy Vitamin D Total 27.6 ng/mL (30-100) Images Images Report reviewed, images independently reviewed. Trimalleolar ankle fracture, displaced. PATIENT: TIFF ROBBINSCOUNT: [id number] : 1985 LOCATION: [address] [place] [address] AGE: 33 SEX: F EXAM STATUS: ADM IN ORD. PHYSICIAN: RODRIGUE EPSTEIN APRN REASON: ankle pain PROCEDURE: ANKLE LEFT 3V 3 views left ankle 11/12/2018 INDICATION: Ankle pain COMPARISON STUDY: None Discussion: Overlying splinting material noted. This limits bony detail. There appears to be a trimalleolar ankle fracture with significant lateral displacement of the medial malleolus fracture fragment. Mild comminution of this fracture fragment noted. There is an oblique fracture of the distal fibula. There is a mildly displaced posterior malleolar fracture. The ankle mortise is significantly widened with lateral displacement of the talus with respect to the tibia. Mild posterior displacement of the talus also appears to be present. Joint effusion and soft tissue swelling noted. IMPRESSION: Trimalleolar fracture as described. Consider CT imaging as clinically indicated. Electronically signed by: Henok Fernandez MD (11/13/2018 8:06 AM) [facility] DICTATED and SIGNED BY: HENOK FERNANDEZ MD DATE: 11/13/18805 Assessment/Plan Assessment/Plan Displaced trimalleolar fracture of left lower leg, initial encounter for closed fracture, S82.852A I recommend open treatment with internal fixation. I spoke to her about possible posterior fixation of the posterior lip fracture but not likely required in this case. (Likely procedure open treatment of trimalleolar ankle fracture, includes internal fixation, medial and lateral malleolus without fixation of posterior lip CPT 35615) I would recommend fixation of the medial malleolus with 2 screws in the lateral malleolus with a plate and screws and discussed all this with her as well as her images from the Internet. We discussed potential risks, as well as the benefits. We discussed potential risks of neurovascular injury, nonunion or malunion, arthritis, need for hardware removal, blood clots, infection, or other potential surgical or anesthetic complications. All of her questions about surgery were answered and she desires to proceed. The left foot was marked by me. GABBY WICK MD Nov 13, 2018 12:35
--- NOTE | 2018-11-13 13:38 | NUR ---
SS following for discharge planning. SS reviewed pt chart. Pt is self pay pt. HCFS following for self pay status. Pt is from home and is currently on room air. No discharge needs noted at this time. SS will continue to follow for discharge planning.
[2018-11-13] MEDS ORDERED: ceFAZolin 2GM PREMIX 2 GM/50 ML BAG IV ONE (14:00)
[2018-11-13] MEDS ORDERED: BUPIVACAINE-EPI 0.25%-1:200000 MPF 30 ML VIAL. INJ ONE (14:00)
[2018-11-13] MEDS ORDERED: LIDOCAINE 2% PF 5 ML VIAL. ONE (14:04)
[2018-11-13] MEDS ORDERED: KETOROLAC 30 MG/ML VIAL. ONE (14:04)
[2018-11-13] MEDS ORDERED: ONDANSETRON PF 4 MG/2 ML VIAL. ONE (14:04)
[2018-11-13] MEDS ORDERED: FAMOTIDINE 20 MG/2 ML VIAL ONE (14:04)
[2018-11-13] MEDS ORDERED: DEXAMETHASONE SOD PHOS 4 MG/ML VIAL ONE (14:04)
[2018-11-13] MEDS ORDERED: PROPOFOL 20 ML IV ONE (14:04)
[2018-11-13] MEDS ORDERED: MIDAZOLAM HCL/PF 2 MG/2 ML VIAL. ONE (14:04)
[2018-11-13] MEDS ORDERED: KETAMINE HCL IN NACL, ISO-OSM 50 MG/5 ML SYRINGE ONE (14:04)
[2018-11-13] MEDS ORDERED: SUCCINYLCHOLINE 200 MG/10 ML VIAL. ONE (14:06)
--- NOTE | 2018-11-13 14:41 | RAD ---
Right upper quadrant ultrasound 11/13/2018 INDICATION: Epigastric pain. History of gallstones. COMPARISON STUDY: None Discussion: The pancreas is partially visualized. Visualized portions of the pancreas are unremarkable. The liver is partially visualized. The liver appears to be diffusely hyperechoic. The liver is within normal limits in regards to size measuring 17 cm longitudinally. Gallbladder is normal in appearance without evidence of wall thickening, stones, or sludge. The common bile duct is nondilated 4 mm. Right kidney is unremarkable in appearance measuring 11 cm in length. IMPRESSION: 1. Probable hepatic steatosis 2. Unremarkable sonographic appearance of the gallbladder. Electronically signed by: Henok Hyman MD (11/13/2018 2:38 PM) [facility]
[2018-11-13] MEDS ORDERED: ceFAZolin SODIUM 1 GM VIAL ONE (15:01)
[2018-11-13] MEDS ORDERED: 0.9 % SODIUM CHLORIDE 20 ML VIAL. IJ ONE (15:01)
[2018-11-13 15:45] LABS: U PREG PATIENT NEGATIVE (NEG)
[2018-11-13] MEDS ORDERED: MORPHINE SULFATE 2 MG/ML VIAL. ONE (16:42)
[2018-11-13] MEDS ORDERED: fentaNYL PF VIAL 100 MCG/2 ML VIAL ONE (16:42)
[2018-11-13] MEDS ORDERED: IV RINGERS,LACTATED 1000ML 1,000 ML IV SCH (16:43)
[2018-11-13] MEDS ORDERED: fentaNYL PF VIAL 100 MCG/2 ML VIAL IV PRN ×2 (16:45→17:00)
[2018-11-13] MEDS: fentaNYL PF VIAL 100 MCG/2 ML VIAL IV PRN ×2 (16:45→16:58)
[2018-11-13] MEDS ORDERED: HYDROmorphone 2 MG/ML VIAL IV PRN (16:45)
[2018-11-13] MEDS ORDERED: PROCHLORPERAZINE 10 MG/2 ML VIAL. IV PRN (16:45)
[2018-11-13] MEDS: MORPHINE SULFATE 2 MG/ML VIAL. IV PRN ×2 (16:46→17:15)
--- NOTE | 2018-11-13 16:59 | PDOC4 ---
Operative Note Operative Note Date of Procedure: November 13, 2018 Pre-Op Diagnosis: Displaced trimalleolar fracture of left lower leg, initial encounter for closed fracture S82.153Z Post-Op Diagnosis: same Procedure: Open treatment trimalleolar ankle fracture, with internal fixation, medial and lateral malleolus without fixation of posterior lip CPT 12158, left ankle Anesthesia Type: General Surgeon: Gabby Chan MD Head Of Science: RODGER Joseph EBL: 50 mL Specimens Obtained: none Drains: none Complications: none Implants: Synthes stainless small fragment 3.5 mm INDICATIONS FOR PROCEDURE: The patient is a 33 year-old with a displaced unstable left ankle fracture. The patient and I discussed the risks and benefits of operative treatment. Surgical fixation likely will give a better long-term outcome. We talked about the risks of the operative fixation such as the risks of bleeding, infection, blood clots, need for hardware removal, stiffness or other potential surgical or anesthetic complications. All of the patient's questions about surgery were answered and she desired to proceed. Written consent was obtained. PROCEDURE IN DETAIL: The patient was identified in the preoperative holding area. The correct left lower extremity was marked by me. The patient was taken to the operating room, where a general anesthetic was used. Preoperative antibiotics were given intravenously. A timeout procedure was performed. A padded tourniquet was used on the upper left thigh. The limb was prepared in sterile fashion with ChloraPrep solution, and sterile drapes were applied with a sterile glove over the toes and heel. An Esmarch bandage was used to exsanguinate the limb and the tourniquet was inflated. The direct lateral approach to the distal fibula was used. Sharp dissection was used and Bovie electrocautery was used as needed for hemostasis. The fracture was easily identified and exposed. The fracture is markedly comminuted with several butterfly fragments and is not amenable to interfragmentary fixation. The fracture was gapped open with traction, and fracture hematoma was cleared with curettes, rongeurs and irrigation. I had my data control assistant apply longitudinal traction and internal rotation to help reduce the fracture, and I applied a lobster claw bone to reduce the 2 main portions of the fracture. A K-wire was used on the two major fragments so that the clamp could be removed. I then applied a nonlocking 10 hole one-third tubular plate laterally. I applied cortical screws proximally and cancellous screws distally for rigid fixation across the fracture site to stabilize it. Satisfactory reduction and fixation was obtained of the fibula which was confirmed using the image intensifier. A medial incision was used. The medial malleolus fragment was identified and fracture hematoma was cleared with curettes, rongeurs, and irrigation. The joint was thoroughly irrigated with saline to remove bone or cartilage fragments and hematoma from within the ankle joint. The medial malleolar fragment was now held reduced with a tenaculum bone clamp. 2.5 mm drill bits were used to stabilize the fragment, and the image intensifier was used to confirm the trajectory of the drill bits. Each of the 2.5 mm drill bits was exchanged for a 40 mm partially threaded cancellous screw. Secure reduction and fixation was obtained. The image intensifier views showed satisfactory reduction and fixation of both the medial and lateral malleolus. The syndesmosis was stressed and remained stable. I had felt syndesmosis fixation would likely be needed, and had the AO [employer]ian Basic set in the room and opened for potential syndesmosis fixation, but I could not widen the syndesmosis or medial clear space with manipulation under fluoroscopy and did not feel that syndesmosis fixation was indicated. The posterior malleolar fragment was identified, and is only a small portion of the ankle fracture, is reduced, and does not require additional fixation The tourniquet was released. Copious saline irrigation was used. Bovie electrocautery was used for hemostasis. Local anesthetic 30 mL of 0.25% bupivacaine with epinephrine with epinephrine was injected into the skin edges. The incision was closed in layers with #0 Vicryl, 2-0 Vicryl and staple by me and by my data control assistant. Xeroform and a sterile dressing and a splint were applied. There were no apparent complications. GABBY CHAN MD Nov 13, 2018 16:59
[2018-11-13] MEDS ORDERED: MORPHINE SULFATE 4 MG/ML VIAL. IV PRN (17:00)
[2018-11-13] MEDS ORDERED: DEXTROSE 50% 25 GM / 50ML DISP.SYRIN. IV PRN (17:00)
[2018-11-13] MEDS ORDERED: IV DEXTROSE 5% 250 ML BAG. IV PRN (17:00)
[2018-11-13] MEDS ORDERED: oxyCODONE/APAP 5/325 1 TAB TABLET PO PRN (17:00)
[2018-11-13] MEDS ORDERED: POLYETHYLENE GLYCOL 3350 17 GM PACKET. PO PRN (17:00)
[2018-11-13] MEDS ORDERED: MORPHINE SULFATE 2 MG/ML VIAL. IV PRN (17:00)
[2018-11-13] MEDS: IV 1/2 NORMAL SALINE 1,000 ML IV SCH (17:52)
[2018-11-13] MEDS: KETOROLAC 30 MG/ML VIAL. IV SCH (18:56)
[2018-11-13] MEDS: oxyCODONE/APAP 5/325 1 TAB TABLET PO PRN (21:21)
[2018-11-13] MEDS: ASPIRIN ENTERIC COATED 325 MG TABLET.DR. PO SCH (21:22)
[2018-11-14] MEDS: KETOROLAC 30 MG/ML VIAL. IV SCH ×3 (00:53→11:49)
[2018-11-14 02:35] VITALS: BP 116/58
[2018-11-14] MEDS ORDERED: MAGNESIUM HYDROXIDE 2,400 MG/30 ML ORAL.SUSP. PO PRN (06:00)
[2018-11-14 06:57] LABS: HEMATOCRIT 33.8 % (36.0-47.0); HEMOGLOBIN 11.1 g/dL (12.0-15.5); RED BLOOD COUNT 4.14 x10^6/uL (3.50-5.40); RED CELL DISTRIBUTION WIDTH 14.6 % (11.5-14.5); WHITE BLOOD COUNT 13.5 x10^3/uL (4.0-11.0)
[2018-11-14 07:00] VITALS: BP 141/93
[2018-11-14] MEDS: IV 1/2 NORMAL SALINE 1,000 ML IV SCH (07:18)
[2018-11-14 07:33] LABS: ALBUMIN 3.1 g/dL (3.4-5.0); ALBUMIN/GLOBULIN RATIO 0.7 (1.0-1.7); CALCIUM 8.9 mg/dL (8.5-10.1); CREATININE 0.8 mg/dL (0.6-1.0); GFR 82.1; POTASSIUM 4.3 mmol/L (3.5-5.1); TOTAL BILIRUBIN 0.4 mg/dL (0.2-1.0); TOTAL PROTEIN 7.3 g/dL (6.4-8.2)
[2018-11-14] MEDS: POLYETHYLENE GLYCOL 3350 17 GM PACKET. PO SCH (08:00)
[2018-11-14] MEDS: ASPIRIN ENTERIC COATED 325 MG TABLET.DR. PO SCH (08:00)
[2018-11-14] MEDS: PANTOPRAZOLE 40 MG TABLET.DR. PO SCH (08:00)
[2018-11-14] MEDS ORDERED: CHOLECALCIFEROL (VITAMIN D3) 5,000 UNIT CAPSULE PO SCH (09:00)
[2018-11-14] MEDS ORDERED: SENNOSIDES/DOCUSATE 8.6/50MG TABLET. PO SCH (09:00)
[2018-11-14] MEDS ORDERED: MULTIVITAMIN with MINERAL TABLET. PO SCH (09:00)
[2018-11-14] MEDS ORDERED: CHOLECALCIFEROL (VITAMIN D3) 1,000 UNIT TABLET PO SCH (09:00)
--- NOTE | 2018-11-14 09:20 | PDOC ---
PROGRESS NOTES Chief Complaint Chief Complaint 1, POD # 1, left ankle fx 2. Obesity 3. LEft epig pain with noral GB sono 4. Vit D insuff History of Present Illness History of Present Illness POD # 1 LEft leg elevated PAin under control VIt D 27 Still [facility] ided abd pain - GI on baord US neg for gB dse PLAN: Start vit D 5,000 daily COnt pain control Post op care/labs PT.OT Await further recs re that persistent left upper quad pain from GI Vitals Vitals Vital Signs Date Time Temp Pulse Resp B/P (MAP) Pulse Ox O2 Delivery O2 Flow Rate FiO2 11/14/18 07:00 97.5 72 16 141/93 (109) 95 Room Air 97.5 11/14/18 02:35 2.0 Physical Exam General: Alert, Cooperative, No acute distress Heart: Regular rate, Normal S1, Normal S2, No murmurs Lungs: Clear Abdomen: Normal bowel sounds, Soft, Other (LUQ tenderness deep palp, no guarding) Extremities: No clubbing, No cyanosis, No edema, Other (left leg cast.) Skin: No rashes, No breakdown, No significant lesion Labs LABS Laboratory Tests Test 11/13/18 14:03 11/14/18 05:35 Urine Test Negative (NEG) White Blood Count 13.5 x10^3/uL (4.0-11.0) Red Blood Count 4.14 x10^6/uL (3.50-5.40) Hemoglobin 11.1 g/dL (12.0-15.5) Hematocrit 33.8 % (36.0-47.0) Mean Corpuscular Volume 82 fL (79-100) Mean Corpuscular Hemoglobin 27 pg (25-35) Mean Corpuscular Hemoglobin Concent 33 g/dL (31-37) Red Cell Distribution Width 14.6 % (11.5-14.5) Platelet Count 362 x10^3/uL (140-400) Sodium Level 141 mmol/L (136-145) Potassium Level 4.3 mmol/L (3.5-5.1) Chloride Level 107 mmol/L (98-107) Carbon Dioxide Level 26 mmol/L (21-32) Anion Gap 8 (6-14) Blood Urea Nitrogen 15 mg/dL (7-20) Creatinine 0.8 mg/dL (0.6-1.0) Estimated GFR (Cockcroft-Gault) 82.1 BUN/Creatinine Ratio 19 (6-20) Glucose Level 106 mg/dL (70-99) Calcium Level 8.9 mg/dL (8.5-10.1) Total Bilirubin 0.4 mg/dL (0.2-1.0) Aspartate Amino Transf (AST/SGOT) 37 U/L (15-37) Alanine Aminotransferase (ALT/SGPT) 42 U/L (14-59) Alkaline Phosphatase 100 U/L (46-116) Total Protein 7.3 g/dL (6.4-8.2) Albumin 3.1 g/dL (3.4-5.0) Albumin/Globulin Ratio 0.7 (1.0-1.7) Review of Systems Review of Systems LUQ pain, left leg pain, rest of 14 pt neg Assessment and Plan Assessmemt and Plan Problems Medical Problems: (1) Trimalleolar fracture Status: Acute Comment Review of Relevant I have reviewed the following items rufino (where applicable) has been applied. Labs Laboratory Tests Test 11/12/18 21:55 11/13/18 09:15 11/13/18 14:03 11/14/18 05:35 White Blood Count 11.4 x10^3/uL (4.0-11.0) 13.5 x10^3/uL (4.0-11.0) Red Blood Count 4.46 x10^6/uL (3.50-5.40) 4.14 x10^6/uL (3.50-5.40) Hemoglobin 12.1 g/dL (12.0-15.5) 11.1 g/dL (12.0-15.5) Hematocrit 36.0 % (36.0-47.0) 33.8 % (36.0-47.0) Mean Corpuscular Volume 81 fL (79-100) 82 fL (79-100) Mean Corpuscular Hemoglobin 27 pg (25-35) 27 pg (25-35) Mean Corpuscular Hemoglobin Concent 34 g/dL (31-37) 33 g/dL (31-37) Red Cell Distribution Width 14.8 % (11.5-14.5) 14.6 % (11.5-14.5) Platelet Count 391 x10^3/uL (140-400) 362 x10^3/uL (140-400) Neutrophils (%) (Auto) 60 % (31-73) Lymphocytes (%) (Auto) 33 % (24-48) Monocytes (%) (Auto) 6 % (0-9) Eosinophils (%) (Auto) 1 % (0-3) Basophils (%) (Auto) 1 % (0-3) Neutrophils # (Auto) 6.8 x10^3/uL (1.8-7.7) Lymphocytes # (Auto) 3.8 x10^3/uL (1.0-4.8) Monocytes # (Auto) 0.6 x10^3/uL (0.0-1.1) Eosinophils # (Auto) 0.1 x10^3/uL (0.0-0.7) Basophils # (Auto) 0.1 x10^3/uL (0.0-0.2) Sodium Level 141 mmol/L (136-145) 141 mmol/L (136-145) Potassium Level 4.0 mmol/L (3.5-5.1) 4.3 mmol/L (3.5-5.1) Chloride Level 104 mmol/L (98-107) 107 mmol/L (98-107) Carbon Dioxide Level 25 mmol/L (21-32) 26 mmol/L (21-32) Anion Gap 12 (6-14) 8 (6-14) Blood Urea Nitrogen 17 mg/dL (7-20) 15 mg/dL (7-20) Creatinine 1.0 mg/dL (0.6-1.0) 0.8 mg/dL (0.6-1.0) Estimated GFR (Cockcroft-Gault) 63.5 82.1 BUN/Creatinine Ratio 17 (6-20) 19 (6-20) Glucose Level 97 mg/dL (70-99) 106 mg/dL (70-99) Calcium Level 9.3 mg/dL (8.5-10.1) 8.9 mg/dL (8.5-10.1) Total Bilirubin 0.4 mg/dL (0.2-1.0) 0.4 mg/dL (0.2-1.0) Aspartate Amino Transf (AST/SGOT) 52 U/L (15-37) 37 U/L (15-37) Alanine Aminotransferase (ALT/SGPT) 57 U/L (14-59) 42 U/L (14-59) Alkaline Phosphatase 107 U/L (46-116) 100 U/L (46-116) Total Protein 7.8 g/dL (6.4-8.2) 7.3 g/dL (6.4-8.2) Albumin 3.5 g/dL (3.4-5.0) 3.1 g/dL (3.4-5.0) Albumin/Globulin Ratio 0.8 (1.0-1.7) 0.7 (1.0-1.7) Lipase 63 U/L (73-393) 25-Hydroxy Vitamin D Total 27.6 ng/mL (30-100) Urine Test Negative (NEG) Laboratory Tests Test 11/13/18 14:03 11/14/18 05:35 Urine Test Negative (NEG) White Blood Count 13.5 x10^3/uL (4.0-11.0) Red Blood Count 4.14 x10^6/uL (3.50-5.40) Hemoglobin 11.1 g/dL (12.0-15.5) Hematocrit 33.8 % (36.0-47.0) Mean Corpuscular Volume 82 fL (79-100) Mean Corpuscular Hemoglobin 27 pg (25-35) Mean Corpuscular Hemoglobin Concent 33 g/dL (31-37) Red Cell Distribution Width 14.6 % (11.5-14.5) Platelet Count 362 x10^3/uL (140-400) Sodium Level 141 mmol/L (136-145) Potassium Level 4.3 mmol/L (3.5-5.1) Chloride Level 107 mmol/L (98-107) Carbon Dioxide Level 26 mmol/L (21-32) Anion Gap 8 (6-14) Blood Urea Nitrogen 15 mg/dL (7-20) Creatinine 0.8 mg/dL (0.6-1.0) Estimated GFR (Cockcroft-Gault) 82.1 BUN/Creatinine Ratio 19 (6-20) Glucose Level 106 mg/dL (70-99) Calcium Level 8.9 mg/dL (8.5-10.1) Total Bilirubin 0.4 mg/dL (0.2-1.0) Aspartate Amino Transf (AST/SGOT) 37 U/L (15-37) Alanine Aminotransferase (ALT/SGPT) 42 U/L (14-59) Alkaline Phosphatase 100 U/L (46-116) Total Protein 7.3 g/dL (6.4-8.2) Albumin 3.1 g/dL (3.4-5.0) Albumin/Globulin Ratio 0.7 (1.0-1.7) Medications Current Medications Morphine Sulfate (Morphine Sulfate) 8 mg 1X ONCE IM Last administered on 11/12/18at 20:45; Start 11/12/18 at 20:15; Stop 11/12/18 at 20:31; Status DC Fentanyl Citrate (Fentanyl 2ml Vial) 50 mcg 1X ONCE IV Last administered on 11/12/18at 22:04; Start 11/12/18 at 22:00; Stop 11/12/18 at 22:01; Status DC Midazolam HCl (Versed) 5 mg 1X ONCE IV Last administered on 11/12/18at 22:04; Start 11/12/18 at 22:00; Stop 11/12/18 at 22:01; Status DC Ondansetron HCl (Zofran) 4 mg PRN Q8HRS PRN IV NAUSEA/VOMITING 1st choice Last administered on 11/12/18at 22:28; Start 11/12/18 at 22:00; Stop 11/13/18 at 08:04; Status DC Morphine Sulfate (Morphine Sulfate) 4 mg PRN Q2HR PRN IV SEVERE PAIN 7-10 Last administered on 11/13/18at 12:13; Start 11/12/18 at 22:00; Stop 11/13/18 at 21:59; Status DC Ondansetron HCl (Zofran) 4 mg PRN Q6HRS PRN IV NAUSEA/VOMITING 1st choice Last administered on 11/13/18at 08:12; Start 11/13/18 at 08:15 Oxycodone/ Acetaminophen (Percocet 5/325) 1 tab PRN Q4HRS PRN PO PAIN Last administered on 11/13/18at 21:22; Start 11/13/18 at 08:15 Zolpidem Tartrate (Ambien) 5 mg PRN QHS PRN PO INSOMNIA; Start 11/13/18 at 08:15 Pantoprazole Sodium (Protonix) 40 mg DAILYAC PO Last administered on 11/14/18at 08:01; Start 11/13/18 at 09:30 Polyethylene Glycol (miraLAX PACKET) 17 gm DAILY PO Last administered on 11/14/18at 08:01; Start 11/13/18 at 10:00 Bisacodyl (Dulcolax Tab) 5 mg PRN DAILY PRN PO CONSTIPATION; Start 11/13/18 at 09:30 Nicotine (Nicoderm Cq 21mg) 1 patch PRN DAILY PRN TD SMOKING CESSATION; Start 11/13/18 at 09:30 Sodium Chloride 1,000 ml @ 100 mls/hr 1X ONCE IV Last administered on 11/13/18at 10:15; Start 11/13/18 at 09:30; Stop 11/13/18 at 19:29; Status DC Bupivacaine HCl/ Epinephrine Bitart (Sensorcaine-Epi 0.25%-1:010662 Mpf) 30 ml 1X ONCE INJ Last administered on 11/13/18at 15:50; Start 11/13/18 at 14:00; Stop 11/13/18 at 14:01; Status DC Propofol 20 ml @ As Directed STK-MED ONCE IV ; Start 11/13/18 at 14:04; Stop 11/13/18 at 14:04; Status DC Dexamethasone Sodium Phosphate (Decadron) 4 mg STK-MED ONCE .ROUTE ; Start 11/13/18 at 14:04; Stop 11/13/18 at 14:04; Status DC Ketorolac Tromethamine (Toradol 30mg Vial) 30 mg STK-MED ONCE .ROUTE ; Start 11/13/18 at 14:04; Stop 11/13/18 at 14:04; Status DC Famotidine (Pepcid Vial) 20 mg STK-MED ONCE .ROUTE ; Start 11/13/18 at 14:04; Stop 11/13/18 at 14:04; Status DC Lidocaine HCl (Lidocaine Pf 2% Vial) 5 ml STK-MED ONCE .ROUTE ; Start 11/13/18 at 14:04; Stop 11/13/18 at 14:04; Status DC Ondansetron HCl (Zofran) 4 mg STK-MED ONCE .ROUTE ; Start 11/13/18 at 14:04; St op 11/13/18 at 14:04; Status DC Ketamine HCl (Ketamine) 50 mg STK-MED ONCE .ROUTE ; Start 11/13/18 at 14:04; Stop 11/13/18 at 14:04; Status DC Midazolam HCl (Versed) 2 mg STK-MED ONCE .ROUTE ; Start 11/13/18 at 14:04; Stop 11/13/18 at 14:04; Status DC Succinylcholine Chloride (Anectine) 200 mg STK-MED ONCE .ROUTE ; Start 11/13/18 at 14:06; Stop 11/13/18 at 14:07; Status DC Cefazolin Sodium/ Dextrose 50 ml @ 100 mls/hr 1X PREOP PRN IV Pre Op Dose; Start 11/13/18 at 14:30 Cefazolin Sodium (Ancef) 1 gm STK-MED ONCE .ROUTE ; Start 11/13/18 at 15:01; Stop 11/13/18 at 15:01; Status DC Sodium Chloride (SODIUM CHLORIDE 20ml) 20 ml STK-MED ONCE IJ ; Start 11/13/18 at 15:01; Stop 11/13/18 at 15:01; Status DC Fentanyl Citrate (Fentanyl 2ml Vial) 100 mcg STK-MED ONCE .ROUTE ; Start 11/13/18 at 16:42; Stop 11/13/18 at 16:42; Status DC Morphine Sulfate (Morphine Sulfate) 2 mg STK-MED ONCE .ROUTE ; Start 11/13/18 at 16:42; Stop 11/13/18 at 16:42; Status DC Ondansetron HCl (Zofran) 4 mg PRN Q6HRS PRN IV NAUSEA/VOMITING; Start 11/13/18 at 16:45; Stop 11/14/18 at 16:44 Fentanyl Citrate (Fentanyl 2ml Vial) 25 mcg PRN Q5MIN PRN IV MILD PAIN 1-3; Start 11/13/18 at 16:45; Stop 11/14/18 at 16:44 Fentanyl Citrate (Fentanyl 2ml Vial) 50 mcg PRN Q5MIN PRN IV MODERATE TO SEVERE PAIN Last administered on 11/13/18at 17:03; Start 11/13/18 at 16:45; Stop 11/14/18 at 16:44 Morphine Sulfate (Morphine Sulfate) 1 mg PRN Q10MIN PRN IV SEVERE PAIN 7-10 Last administered on 11/13/18at 17:28; Start 11/13/18 at 16:45; Stop 11/14/18 at 16:44 Ringer's Solution 1,000 ml @ 30 mls/hr Q24H IV ; Start 11/13/18 at 16:43; Stop 11/14/18 at 04:42; Status DC Hydromorphone HCl (Dilaudid) 0.5 mg PRN Q10MIN PRN IV SEV PAIN, Second choice; Start 11/13/18 at 16:45; Stop 11/14/18 at 16:44 Prochlorperazine Edisylate (Compazine) 5 mg PACU PRN PRN IV NAUSEA, MRX1 Last administered on 11/13/18at 17:02; Start 11/13/18 at 16:45; Stop 11/14/18 at 16:44 Morphine Sulfate (Morphine Sulfate) 2 mg PRN Q1HR PRN IV PAIN; Start 11/13/18 at 17:00 Fentanyl Citrate (Fentanyl 2ml Vial) 25 mcg PRN Q1HR PRN IV PAIN; Start 11/13/18 at 17:00 Multivitamins (Thera M Plus) 1 tab DAILY PO Last administered on 11/14/18at 08:01; Start 11/14/18 at 09:00 Senna/Docusate Sodium (Senna Plus) 1 tab DAILY PO Last administered on 11/14/18at 08:01; Start 11/14/18 at 09:00 Polyethylene Glycol (miraLAX PACKET) 17 gm PRN DAILY PRN PO CONSTIPATION; Start 11/13/18 at 17:00 Vitamin D (Vitamin D3) 1,000 unit DAILY PO Last administered on 11/14/18at 08:01; Start 11/14/18 at 09:00; Stop 11/14/18 at 08:38; Status DC Sodium Chloride 1,000 ml @ 75 mls/hr [id number] IV Last administered on 11/13/18at 17:53; Start 11/13/18 at 16:59 Ondansetron HCl (Zofran) 4 mg PRN Q4HRS PRN IV NAUSEA/VOMITING; Start 11/13/18 at 17:00 Magnesium Hydroxide (Milk Of Magnesia) 2,400 mg 1X PRN PRN PO CONSTIPATION; Start 11/14/18 at 06:00; Stop 11/15/18 at 05:59 Bisacodyl (Dulcolax Supp) 10 mg 1X PRN PRN [place] CONSTIPATION; Start 11/14/18 at 16:00; Stop 11/15/18 at 15:59 Morphine Sulfate (Morphine Sulfate) 4 mg PRN Q2HR PRN IV PAIN Last administered on 11/13/18at 18:57; Start 11/13/18 at 17:00 Dextrose (Dextrose 50%-Water Syringe) 12.5 gm PRN Q15MIN PRN IV SEE COMMENTS; Start 11/13/18 at 17:00 Dextrose 250 ml PRN Q15MIN PRN IV SEE COMMENTS; Start 11/13/18 at 17:00; Status UNV Cefazolin Sodium/ Dextrose 50 ml @ 100 mls/hr Q6H IV Last administered on 11/14/18at 08:01; Start 11/13/18 at 21:00; Stop 11/14/18 at 09:29 Aspirin (Ecotrin) 325 mg BID PO Last administered on 11/14/18at 08:01; Start 11/13/18 at 21:00 Oxycodone/ Acetaminophen (Percocet 5/325) 1 tab PRN Q4HRS PRN PO MODERATE PAIN; Start 11/13/18 at 17:00 Ketorolac Tromethamine (Toradol 30mg Vial) 30 mg Q6HRS IV Last administered on 11/14/18at 06:42; Start 11/13/18 at 18:00; Stop 11/14/18 at 12:01 Vitamin D (Vitamin D3) 5,000 unit DAILY PO ; Start 11/14/18 at 09:00 Vitals/I & O Vital Sign - Last 24 Hours 11/13/18 11/13/18 11/13/18 11/13/18 10:15 10:48 11:04 12:13 Temp 98.0 98.0 Pulse 79 Resp 18 B/P (MAP) 114/62 (79) Pulse Ox 97 O2 Delivery Room Air Room Air Room Air Room Air 11/13/18 11/13/18 11/13/18 11/13/18 14:28 16:40 16:40 16:55 Temp 97.4 97.4 97.4 97.4 Pulse 83 84 Resp 18 16 B/P (MAP) 153/88 153/97 Pulse Ox 98 93 O2 Delivery Room Air Mask Simple Mask Simple Mask O2 Flow Rate 10 10 10.0 11/13/18 11/13/18 11/13/18 11/13/18 17:02 17:02 17:03 17:10 Temp 97.4 97.4 Pulse 95 Resp 18 16 14 16 B/P (MAP) 154/99 Pulse Ox 98 98 95 94 O2 Delivery Simple Mask Simple Mask Simple Mask Nasal Cannula O2 Flow Rate 10.0 10.0 15.0 4 11/13/18 11/13/18 11/13/18 11/13/18 17:25 17:28 17:45 18:00 Temp 97.4 97.5 97.4 97.5 Pulse 70 76 77 Resp 16 16 18 B/P (MAP) 156/94 152/95 (114) 129/80 (96) Pulse Ox 95 95 95 O2 Delivery Nasal Cannula Nasal Cannula Room Air O2 Flow Rate 4.0 4.0 2.0 11/13/18 11/13/18 11/13/18 11/13/18 18:15 18:30 18:57 19:00 Temp 97.7 97.7 Pulse 71 71 79 Resp 18 18 B/P (MAP) 147/88 (107) 141/92 (108) 147/88 (107) Pulse Ox 95 95 99 O2 Delivery Room Air Room Air Nasal Cannula Room Air O2 Flow Rate 2.0 11/13/18 11/13/18 11/13/18 11/13/18 19:30 20:00 20:30 21:30 Pulse 81 88 79 B/P (MAP) 144/92 (109) 144/93 (110) 152/95 (114) Pulse Ox 98 98 98 O2 Delivery Room Air Room Air Room Air Room Air 11/13/18 11/14/18 11/14/18 22:51 02:35 07:00 Temp 98.0 97.5 98.0 97.5 Pulse 59 68 72 Resp 18 18 16 B/P (MAP) 134/52 (79) 116/58 (77) 141/93 (109) Pulse Ox 99 97 95 O2 Delivery Room Air Room Air Room Air O2 Flow Rate 2.0 2.0 Intake and Output 11/13/18 11/13/18 11/14/18 15:00 23:00 07:00 Intake Total 0 ml 900 ml 0 ml Output Total 50 ml Balance 0 ml 850 ml 0 ml HANK GORMAN MD Nov 14, 2018 09:19
[2018-11-14 11:00] VITALS: BP 132/79
[2018-11-14] MEDS: oxyCODONE/APAP 5/325 1 TAB TABLET PO PRN (11:50)
--- NOTE | 2018-11-14 13:57 | PDOC ---
Subjective: Subjective: Significant other was hopeful I had the discharge papers. Ankle feels better but just took morphine. LUQ pain is the same. Tolerating PO. Objective: Vital Signs: Vital Signs Date Time Temp Pulse Resp B/P (MAP) Pulse Ox O2 Delivery O2 Flow Rate FiO2 11/14/18 12:54 Room Air 11/14/18 11:00 98.7 82 16 132/79 (96) 96 98.7 11/14/18 02:35 2.0 Labs: Laboratory Tests Test 11/13/18 14:03 11/14/18 05:35 Urine Test Negative White Blood Count 13.5 x10^3/uL Red Blood Count 4.14 x10^6/uL Hemoglobin 11.1 g/dL Hematocrit 33.8 % Mean Corpuscular Volume 82 fL Mean Corpuscular Hemoglobin 27 pg Mean Corpuscular Hemoglobin Concent 33 g/dL Red Cell Distribution Width 14.6 % Platelet Count 362 x10^3/uL Sodium Level 141 mmol/L Potassium Level 4.3 mmol/L Chloride Level 107 mmol/L Carbon Dioxide Level 26 mmol/L Anion Gap 8 Blood Urea Nitrogen 15 mg/dL Creatinine 0.8 mg/dL Estimated GFR (Cockcroft-Gault) 82.1 BUN/Creatinine Ratio 19 Glucose Level 106 mg/dL Calcium Level 8.9 mg/dL Total Bilirubin 0.4 mg/dL Aspartate Amino Transf (AST/SGOT) 37 U/L Alanine Aminotransferase (ALT/SGPT) 42 U/L Alkaline Phosphatase 100 U/L Total Protein 7.3 g/dL Albumin 3.1 g/dL Albumin/Globulin Ratio 0.7 25-Hydroxy Vitamin D Total 25.4 ng/mL Imaging: Abd US IMPRESSION: 1. Probable hepatic steatosis 2. Unremarkable sonographic appearance of the gallbladder. PE: GEN: NAD, up to chair LUNGS: CTAB HEART: RRR ABD: LUQ tenderness NEURO/PSYCH: A & O �3 A/P: S/p open treatment trimalleolar ankle fracture, with internal fixation, medial and lateral malleolus without fixation of posterior lip, left ankle LUQ pain - ?MSK GERD - on PPI Leukocytosis, anemia -- LUQ pain the same. They tell me possibly discharging today? Would continue PPI. Has multiple med options to promote stooling. CECIL WINSTON Nov 14, 2018 13:57
[2018-11-14 15:00] VITALS: BP 103/62
[2018-11-14] MEDS ORDERED: ASPI325T11 PO (15:15)
[2018-11-14] MEDS ORDERED: OXYC1TAB15 PO ×2 (15:15→15:23)
[2018-11-14] MEDS ORDERED: BISACODYL 10 MG SUPP.RECT. PR PRN (16:00)
== END 2018-11-14 17:35 | disposition home or self-care (01) | DRG 493 ==
LOC: ER 18:58 → 4 NORTH 21:58
PROVIDERS: ADMIT Internal Medicine; ATTEND Internal Medicine
PROC: 0QSH04Z Reposition Left Tibia with Internal Fixation Device, Open Approach (ICD-10-PCS; 2018-11-13)
PROC: 2W3TX1Z Immobilization of Left Foot using Splint (ICD-10-PCS; 2018-11-13)
PROC: 0QSK04Z Reposition Left Fibula with Internal Fixation Device, Open Approach (ICD-10-PCS; principal; 2018-11-13 14:45)
DX: S82.852A Displaced trimalleolar fracture of left lower leg, initial encounter for closed fracture (principal); Z68.41 Body mass index [BMI] 40.0-44.9, adult; D64.9 Anemia, unspecified; E66.9 Obesity, unspecified; F17.210 Nicotine dependence, cigarettes, uncomplicated; K21.9 Gastro-esophageal reflux disease without esophagitis; Z80.9 Family history of malignant neoplasm, unspecified; Z82.49 Family history of ischemic heart disease and other diseases of the circulatory system; Z79.899 Other long term (current) drug therapy; W18.39XA Other fall on same level, initial encounter; Y93.89 Activity, other specified; Y92.89 Other specified places as the place of occurrence of the external cause; Y99.8 Other external cause status; K81.9 Cholecystitis, unspecified
CPT/HCPCS: 29505; 36415; 73590; 73610; 76705; 80053; 81025; 82306; 83690; 85025; 85027; 93005; 96372; 96374; 96375; A7015; C1713; C1769; J0330; J0690; J0696; J0780; J1100; J1885; J2001; J2250; J2270; J2405; J2704; J3010; J3490; J7030; J7120; 97116; 97530; 97535; 99285-25; G0378

== ENCOUNTER 2018-11-15 00:51 | Emergency (ER) | payer SELFPAY ==
[~2018-11-15] VITALS: Ht 167.6 cm; Wt 122.5 kg
[~2018-11-15 00:51] MED LIST: ASPI325T11 PO; OXYC1TAB15 PO
[2018-11-15] MEDS ORDERED: MORPHINE SULFATE 10 MG/ML VIAL. IM ONE (01:15)
--- NOTE | 2018-11-15 01:56 | PHYS DOC ---
Past Medical History Past Medical History: No Pertinent History Past Surgical History: Other Additional Past Surgical Histo: NECK SX, Left ankle ORIF Smoking: Cigarettes Alcohol Use: None Drug Use: None Adult General Chief Complaint Chief Complaint: POST-OP PROBLEM HPI HPI 33-year-old female presents with report of increased pain and swelling to left ankle at site of recent ORIF for trimalleolar fracture. Patient was previously admitted and treated by Dr. Chan, orthopedics, with ORIF. Patient reports discharged home yesterday. Patient reports today pain was medically worse and has been taking left over hydrocodone as her prescribed Percocet was being held at the pharmacy because they were unable to get ahold of Dr. Chan. Patient denies any shortness of air. Denies chest pain. Denies numbness or tingling. Review of Systems Review of Systems Constitutional: Denies fever or chills Eyes: Denies redness or eye pain HENT: Denies nasal congestion or sore throat Respiratory: Denies cough or shortness of breath Cardiovascular: Denies chest pain or palpitations GI: Denies abdominal pain, nausea, or vomiting : Denies dysuria or hematuria Musculoskeletal: Denies back pain; reports left ankle pain primarily to medial aspect Integument: Denies rash or skin lesions Neurologic: Denies headache, focal weakness or sensory changes; denies numbness or tingling Complete systems were reviewed and found to be within normal limits, except as d ocumented in this note. Current Medications Current Medications Current Medications Medications (Trade) Dose Ordered Sig/Marcial Start Time Stop Time Status Last Admin Dose Admin Morphine Sulfate (Morphine Sulfate) 5 mg 1X ONCE 11/15/18 01:15 11/15/18 01:16 DC 11/15/18 01:34 5 MG Oxycodone/ Acetaminophen (Percocet 7.5/ 325) 1 tab 1X ONCE 11/15/18 02:15 11/15/18 02:16 DC 11/15/18 02:15 1 TAB Allergies Allergies Allergies Coded Allergies Type Severity Reaction Last Updated Verified No Known Drug Allergies 11/12/18 No Physical Exam Physical Exam Constitutional: Well developed, well nourished, uncomfortable, non-toxic appearance HENT: Normocephalic, atraumatic, oropharynx moist Eyes: Conjunctiva normal, no discharge Neck: Normal range of motion, no tenderness, supple Cardiovascular: Heart rate normal, regular rhythm Lungs & Thorax: Bilateral breath sounds clear to auscultation, no wheezing Skin: Warm, dry, no erythema, no rash Extremities: Left ankle held in stirrup orthoglass splint. Splint taken down, bilateral incision sites clean, some sanginous drainage noted on ABD/4x4s/xeroform gauze. Incisions intact with caroline, no surrounding erythema, no active bleeding noted, CR < 2 sec, DP and PT pulses on left +2, good sensation Neurologic: Alert and oriented X 3, normal motor function, normal sensory function, no focal deficits noted Psychologic: Affect anxious, judgement normal Current Patient Data Vital Signs Vital Signs Date Time Temp Pulse Resp B/P (MAP) Pulse Ox O2 Delivery O2 Flow Rate FiO2 11/15/18 02:35 84 16 118/57 (77) 100 Room Air 11/15/18 00:58 98.2 98.2 EKG EKG [] Radiology/Procedures Radiology/Procedures Left ankle 3 V (preliminary interpretation by ED physician): S/p ORIF of trimalleolar fracture. No other acute process noted. Good alignment. Course & Med Decision Making Course & Med Decision Making Pertinent Imaging studies reviewed. (See chart for details) Patient presents with report of left ankle pain status post ORIF for trimalleolar fracture. Patient unable to orange picker her prescription pain medication and has been taking left over hydrocodone. Patient reports some continued swelling to the area. Denies numbness or tingling. Splint taken down and wounds evaluated. No signs of infection. Incision sites are intact. Wound redressed and splint reapplied. Patient stable for discharge with outpatient follow-up with PCP/orthopedics. Discussed findings and plan with patient and family, who acknowledge understanding and agreement. Dragon Disclaimer Dragon Disclaimer This electronic medical record was generated, in whole or in part, using a voice recognition dictation system. Splinting Splinting : Location: Left ankle Hand-Made Type: orthoglass Splint: sugar-tong Pre-Proc Neuro Vasc Exam: normal Post-Proc Neuro Vasc Exam: normal, unchanged from pre-exam Progress Dressed with xeroform, 4x4, and abd. Web roll cotton padding then applied followed by sugar tong splint. Departure Departure Impression: Primary Impression: Post-operative pain Disposition: 01 HOME, SELF-CARE Condition: STABLE Referrals: NO PCP (PCP) GABBY CHAN MD Patient Instructions: Pain Relief Preoperatively and Postoperatively Additional Instructions: Please call Dr. Chan's office for authorization for Percocet. RODRIGUE MCCURDY DO Nov 15, 2018 01:56
[2018-11-15] MEDS ORDERED: oxyCODONE/APAP 7.5/325 1 TAB TABLET PO ONE (02:15)
[2018-11-15 02:35] VITALS: BP 118/57
--- NOTE | 2018-11-15 03:06 | RAD ---
Left ankle x-rays 3 views HISTORY: Status post trimalleolar surgery. FINDINGS: ORIF with reduction and fixation with 2 screws of the medial malleolus fracture. There has also been reduction and fixation with lateral plate and screws of the distal fibula fracture. There is been reduction of the tibiotalar subluxation since the prior exam with anatomic alignment of the ankle. Skin caroline and soft tissue swelling and edema. IMPRESSION: ORIF of the distal tibia and fibula fractures. Electronically signed by: Ian Mahmood MD (11/15/2018 3:03 AM) [id number]
== END 2018-11-15 02:35 | disposition home or self-care (01) ==
LOC: ER 00:51
DX: G89.18 Other acute postprocedural pain (principal); M25.572 Pain in left ankle and joints of left foot; F17.210 Nicotine dependence, cigarettes, uncomplicated
CPT/HCPCS: 29515; 73610; 96372; 99284; J2270

== ENCOUNTER 2019-05-17 21:57 | Emergency (ER) | payer SELFPAY ==
[~2019-05-17] VITALS: Ht 167.6 cm; Wt 123.6 kg
[2019-05-17 22:00] VITALS: BP 162/94
--- NOTE | 2019-05-17 22:23 | PHYS DOC ---
Past Medical History Past Medical History: No Pertinent History (RAINE ROSAS APRN) Past Surgical History: Other Additional Past Surgical Histo: NECK SX, Left ankle ORIF (RAINE ROSAS APRN) Smoking Status: Current Every Day Smoker Alcohol Use: None Drug Use: None (RAINE ROSAS APRN) Attending Signature I have participated in the care of this patient and I have reviewed and agree with all pertinent clinical information above including history, exam, and recommendations. (RAMÍREZ CARRASCO MD) Adult General Chief Complaint Chief Complaint: ANKLE PROBLEM HPI HPI Patient is a 34 year old female with left ankle and foot pain. Patient states over the last 4 to 5 days, she has had some increasing discomfort in her left leg. States she had a trimalleolar fracture in October, had surgery with Dr. Simms. States she had been doing well since that time. States she has had more discomfort on the left side, has had increased swelling in her lower extremity over the last couple days as well. States tenderness, reports the area where she is having the most discomfort seem to be where the incision had healed s lowest. Denies trauma. States discomfort. Has not taken any medications for the discomfort. (RAINE ROSAS APRN) Review of Systems Review of Systems Constitutional: Denies fever or chills [] Respiratory: Denies cough or shortness of breath [] Cardiovascular: No additional information not addressed in HPI [] Integument: Denies rash or skin lesions does that she has noticed some swelling her left leg as well as seems to be cooler than usual, had been warmer than usual couple days ago. [] Neurologic: Denies headache, focal weakness or sensory changes [] All other systems were reviewed and found to be within normal limits, except as documented in this note. (RAINE ROSAS APRN) Current Medications Current Medications Current Medications Medications (Trade) Dose Ordered Sig/Marcial Start Time Stop Time Status Last Admin Dose Admin Acetaminophen/ Hydrocodone Bitart (Lortab 5/325) 1 tab 1X ONCE 05/17/19 22:30 05/17/19 22:31 DC 05/17/19 22:25 1 TAB (RAMÍREZ CARRASCO MD) Allergies Allergies Allergies Coded Allergies Type Severity Reaction Last Updated Verified No Known Drug Allergies 11/12/18 No (RAMÍREZ CARRASCO MD) Physical Exam Physical Exam Constitutional: Well developed, well nourished, no acute distress, non-toxic appearance. [] Skin: Discoloration noted to lateral aspect of left foot without erythema. Foot cool, capillary refill of foot noted 4 to 5 seconds. No lesions. No wounds noted. Left lateral lower leg surgical incision noted, well-healed. Warm, dry, no erythema, no rash. [] Extremities: Left lower leg with ankle edema, nonpitting. Able to flex, extend all digits, some discomfort noted in left ankle anteriorly. Pedal pulse palpable. Negative Homans sign Neurologic: Alert and oriented X 3, normal motor function, normal sensory function, no focal deficits noted. [] Psychologic: Affect normal, judgement normal, mood normal. [] (RAINE ROSAS APRN) Current Patient Data Vital Signs Vital Signs Date Time Temp Pulse Resp B/P (MAP) Pulse Ox O2 Delivery O2 Flow Rate FiO2 05/17/19 22:25 Room Air 05/17/19 22:00 98.2 114 14 162/94 (116) 98 98.2 (RAMÍREZ CARRASCO MD) EKG EKG [] (RAINE ROSAS APRN) Radiology/Procedures Radiology/Procedures FINDINGS: Postsurgical changes of ORIF of the left ankle with lateral fixation plate at the fibula numerous fixation screws and fixation screws at the medial malleolus. Fracture lucency is seen at the fibula. Diffuse soft tissue swelling is noted throughout the ankle. Bone mineralization is normal. No acute fractures. IMPRESSION: Significant diffuse soft tissue swelling at the ankle without underlying acute osseous abnormality identified. Electronically signed by: Ana Booth MD (05/17/2019 11:11 PM) [id number] []Technique: Real-time grayscale and color Doppler images of the left lower extremity were obtained by the department wire brush operator. Comparisons: None FINDINGS: Peak systolic velocities as follows(cm/s): CLOUD ARCHITECT: 144 Profunda: 64 Proximal SFA: 120 Distal SFA: 113 Popliteal: 56 Proximal PLUMBING SERVICE TECHNICIAN: 71 Distal PLUMBING SERVICE TECHNICIAN: 38 Peroneal artery: 35 TERESA: 62 DPA: 55 Scattered areas of plaque noted throughout the arterial vasculature. Biphasic waveforms at the distal posterior tibial artery and peroneal artery with triphasic waveforms throughout the remainder of the left lower extremity. IMPRESSION: 1. Patent arterial vasculature down to the level of the ankle. 2. Mild calcified plaque probably at the popliteal artery, without evidence of significant stenosis. Electronically signed by: Ana Booth MD (05/17/2019 11:07 PM) [id number] (RAINE ROSAS APRN) Course & Med Decision Making Course & Med Decision Making Pertinent Labs and Imaging studies reviewed. (See chart for details) [Discussed findings wth patient, without noted fracture, mechanical changes, or occlusion of circulation. Discussed following up with Dr. Godinez. Patient and family report they had tried to call them, but were unable to go to the clinic as they did not have the money to pay for this that was asked advised again of importance to follow-up with orthopedics to determine if the further concerns over her surgical. Will provide short course of pain medication. Patient to follow-up (RAINE ROSAS APRN) Dragon Disclaimer Dragon Disclaimer This electronic medical record was generated, in whole or in part, using a voice recognition dictation system. (RAINE ROSAS APRN) Departure Departure Impression: Primary Impression: Left ankle pain Additional Impression: Left ankle swelling Disposition: 01 HOME, SELF-CARE Condition: STABLE Referrals: NO PCP (PCP) GABBY CHAN MD Patient Instructions: Ankle Pain Additional Instructions: As we discussed, try to get into Dr. Chan's office again to have them reevaluate your ankle after the surgery. Try to wear some looser socks to make sure that they do not become tight with your ankle being a little swollen. Tylenol or ibuprofen for discomfort, or take the pain medications if needed. Do not drive after taking pain medications. Scripts Hydrocodone/Apap 5-325 (NORCO 5-325 TABLET) 1 Each Tablet 1 TAB PO PRN Q6HRS PRN for PAIN, #16 TAB 0 Refills Prov: RAINE ROSAS APRN 05/17/19 Problem Qualifiers Primary Impression: Left ankle pain Chronicity: unspecified Qualified Codes: M25.572 - Pain in left ankle and joints of left foot RAINE ROSAS APRN May 17, 2019 22:22 RAMÍREZ CARRASCO MD May 18, 2019 05:54
[2019-05-17] MEDS ORDERED: HYDROcodone/APAP 5/325MG 1 TAB TABLET PO ONE (22:30)
--- NOTE | 2019-05-17 23:10 | RAD ---
Exam: Ultrasound left lower extremity arterial duplex Indication: Swelling, correlate extremity Technique: Real-time grayscale and color Doppler images of the left lower extremity were obtained by the department restoration silversmith. Comparisons: None FINDINGS: Peak systolic velocities as follows(cm/s): GAS FURNACE INSTALLER: 144 Profunda: 64 Proximal SFA: 120 Distal SFA: 113 Popliteal: 56 Proximal MASTER IN CHANCERY: 71 Distal MASTER IN CHANCERY: 38 Peroneal artery: 35 TERESA: 62 DPA: 55 Scattered areas of plaque noted throughout the arterial vasculature. Biphasic waveforms at the distal posterior tibial artery and peroneal artery with triphasic waveforms throughout the remainder of the left lower extremity. IMPRESSION: 1. Patent arterial vasculature down to the level of the ankle. 2. Mild calcified plaque probably at the popliteal artery, without evidence of significant stenosis. Electronically signed by: Ana Booth MD (05/17/2019 11:07 PM) [id number]
--- NOTE | 2019-05-17 23:14 | RAD ---
Exam: Left ankle 3 views INDICATION: Pain, swelling TECHNIQUE: Frontal, lateral and oblique views of the left ankle Comparisons: None FINDINGS: Postsurgical changes of ORIF of the left ankle with lateral fixation plate at the fibula numerous fixation screws and fixation screws at the medial malleolus. Fracture lucency is seen at the fibula. Diffuse soft tissue swelling is noted throughout the ankle. Bone mineralization is normal. No acute fractures. IMPRESSION: Significant diffuse soft tissue swelling at the ankle without underlying acute osseous abnormality identified. Electronically signed by: Ana Booth MD (05/17/2019 11:11 PM) [id number]
[2019-05-17] MEDS ORDERED: HYDR-3164 PO (23:30)
== END 2019-05-17 23:38 | disposition home or self-care (01) ==
LOC: ER 21:57
DX: M25.572 Pain in left ankle and joints of left foot (principal); R60.0 Localized edema; F17.200 Nicotine dependence, unspecified, uncomplicated; Z98.890 Other specified postprocedural states
CPT/HCPCS: 73610; 93923; 99284